=== PATIENT | male | born 1955 | race Caucasian/White ===

== ENCOUNTER 2018-08-24 13:40 | Emergency (ER) | payer MEDICAID, OTHER ==
[~2018-08-24] VITALS: Ht 167.6 cm; Wt 68.2 kg
[~2018-08-24 13:40] MED LIST: DIVA-78 PO; HYDR50CA10 PO; QUET200T PO; QUET25TA PO
[2018-08-24 13:52] VITALS: BP 149/84
== END 2018-08-24 14:38 | disposition left against medical advice (07) ==
LOC: EMS 13:40
DX: R45.851 Suicidal ideations (principal); J45.909 Unspecified asthma, uncomplicated; F32.9 Major depressive disorder, single episode, unspecified; F20.9 Schizophrenia, unspecified; F17.210 Nicotine dependence, cigarettes, uncomplicated; F12.90 Cannabis use, unspecified, uncomplicated; F19.90 Other psychoactive substance use, unspecified, uncomplicated; Z88.0 Allergy status to penicillin; Z88.6 Allergy status to analgesic agent; Z91.040 Latex allergy status

== ENCOUNTER 2018-09-22 16:38 | Inpatient (IN) | payer MEDICAID ==
[~2018-09-22] VITALS: Ht 167.6 cm; Wt 65.6 kg
[2018-09-22] MEDS ORDERED: LORazepam 2 MG TABLET PO PRN (19:45)
[2018-09-22] MEDS ORDERED: HALOPERIDOL 5 MG TABLET PO PRN (19:45)
[2018-09-22] MEDS ORDERED: ZOLPIDEM TARTRATE 10 MG TABLET PO PRN (19:45)
[2018-09-22] MEDS ORDERED: PNEUMOCOCCAL VACCINE POLYVALENT 0.5 ML VIAL [PPSV23] IM ONE (23:15)
[2018-09-22] MEDS: NICOTINE 14 MG/24 HOUR PATCH TD SCH (23:16)
[2018-09-23] VITALS (7 sets, daily range): BP systolic 146–195; BP diastolic 84–100
[2018-09-23] MEDS ORDERED: BACITRACIN 28.4 GM OINTMENT TP PRN (06:00)
[2018-09-23] MEDS ORDERED: MAGNESIUM HYDROXIDE SUSPENSION 30 ML UDCUP PO PRN (06:00)
[2018-09-23] MEDS ORDERED: ONDANSETRON HCL 4 MG TABLET PO PRN (06:00)
[2018-09-23] MEDS ORDERED: ALBUTEROL SULFATE HFA 90 MCG/PUFF 8 GM INHALER IH PRN (06:00)
[2018-09-23] MEDS ORDERED: LOPERAMIDE HCL 2 MG CAPSULE PO PRN (06:00)
[2018-09-23] MEDS ORDERED: BENZOCAINE/MENTHOL LOZENGE MM PRN (06:00)
[2018-09-23] MEDS ORDERED: ACETAMINOPHEN 325 MG TABLET PO PRN (06:00)
[2018-09-23] MEDS ORDERED: MAG HYDROX/AL HYDROX/SIMETH ES 30 ML SUSPENSION UDCUP PO PRN (06:00)
[2018-09-23] MEDS ORDERED: PETROLATUM,WHITE 28 GM JELLY TP PRN (06:00)
[2018-09-23] MEDS: DOCUSATE SODIUM 100 MG CAPSULE PO SCH ×2 (08:22→08:48)
[2018-09-23] MEDS: NICOTINE 14 MG/24 HOUR PATCH TD SCH ×2 (08:22→08:48)
[2018-09-23] MEDS: OMEPRAZOLE 20 MG CAPSULE PO SCH ×2 (08:22→08:49)
[2018-09-23 08:51] LABS: APPEARANCE,URINE CLEAR (CLEAR); BILIRUBIN,URINE NEGATIVE (NEGATIVE); GLUCOSE, URINE (UA) 250 mg/dL (NEGATIVE); KETONES,URINE NEGATIVE (NEGATIVE); LEUKOCYTE ESTERASE ,URINE NEGATIVE (NEGATIVE); NITRATE,URINE NEGATIVE (NEGATIVE); OCCULT BLOOD,URINE TRACE (NEGATIVE); PH,URINE 6.5 (5.0-8.0); PROTEIN,URINE SEE CONFIRM (NEGATIVE); UROBILINOGEN,URINE 0.2 mg/dL (<=1.0)
[2018-09-23 08:56] LABS: AMPHET/METH SCREEN,URINE NEGATIVE (NEGATIVE); BARBITURATE SCREEN, URINE NEGATIVE (NEGATIVE); BENZODIAZEPINES SCREEN,URINE NEGATIVE (NEGATIVE); CANNABINOID SCREEN,URINE NEGATIVE (NEGATIVE); COCAINE SCREEN,URINE NEGATIVE (NEGATIVE); METHADONE SCREEN, URINE NEGATIVE (NEGATIVE); OPIATE SCREEN,URINE NEGATIVE (NEGATIVE)
[2018-09-23 08:58] LABS: PHENCYCLIDINE SCREEN,URINE NEGATIVE (NEGATIVE)
[2018-09-23 09:06] LABS: SULFOSALICYLIC ACID,URINE 3+ (Negative)
[2018-09-23 09:11] LABS: BACTERIA,URINE None Seen /HPF (None Seen); RBC,URINE 0-2 /HPF (0-2); WBC,URINE None Seen /HPF (0-5)
[2018-09-23 09:12] LABS: COARSE GRANULAR CASTS,URINE 0-2 /LPF (None Seen); SQUAMOUS EPITHELIAL CELL,UR Rare /LPF (None Seen)
[2018-09-23] MEDS: HydrOXYzine PAMOATE 25 MG CAPSULE PO SCH ×2 (13:26→16:12)
[2018-09-23] MEDS: QUEtiapine FUMARATE 25 MG TABLET PO SCH ×2 (13:26→16:12)
[2018-09-23] MEDS: CloNIDine HCL 0.1 MG TABLET PO PRN ×2 (15:58→23:21)
[2018-09-23] MEDS ORDERED: DIVALPROEX SODIUM 500 MG ER TABLET PO SCH (17:00)
[2018-09-23] MEDS ORDERED: QUEtiapine FUMARATE 200 MG TABLET PO SCH (21:00)
[2018-09-23] MEDS ORDERED: LISINOPRIL 10 MG TABLET PO ONE (21:15)
[2018-09-24 04:59] VITALS: BP_SYST 192; BP_SYST 198; BP_DIAS 119; BP_DIAS 97
[2018-09-24] MEDS ORDERED: CloNIDine HCL 0.1 MG TABLET PO ONE (06:30)
[2018-09-24 06:59] VITALS: BP_SYST 202; BP_DIAS 107; BP_DIAS 110
[2018-09-24 08:24] VITALS: BP 174/93
[2018-09-24] MEDS ORDERED: AmLODIPine BESYLATE 5 MG TABLET PO SCH (09:00)
[2018-09-24] MEDS ORDERED: DIVALPROEX SODIUM 500 MG DR TABLET PO SCH (09:00)
[2018-09-24] MEDS: OMEPRAZOLE 20 MG CAPSULE PO SCH (09:00)
[2018-09-24] MEDS ORDERED: LISINOPRIL 20 MG TABLET PO SCH ×2 (09:00)
[2018-09-24] MEDS: NICOTINE 14 MG/24 HOUR PATCH TD SCH (09:00)
[2018-09-24] MEDS: HydrALAZINE HCL 25 MG TABLET PO SCH ×2 (09:00→13:00)
[2018-09-24] MEDS: DOCUSATE SODIUM 100 MG CAPSULE PO SCH (09:00)
[2018-09-24] MEDS: HydrOXYzine PAMOATE 25 MG CAPSULE PO SCH ×2 (09:01→13:00)
[2018-09-24] MEDS: QUEtiapine FUMARATE 25 MG TABLET PO SCH ×2 (09:01→13:00)
[2018-09-24 09:28] VITALS: BP 197/113
[2018-09-24 09:31] VITALS: BP 205/121
[2018-09-24] MEDS ORDERED: PIME30CR6 TP (21:38)
== END 2018-09-24 21:42 | disposition still patient (30) | DRG 750 ==
LOC: B2S 19:40
PROVIDERS: ADMIT Psychiatry & Neurology Psychiatry; ATTEND Psychiatry & Neurology Psychiatry
DX: F25.9 Schizoaffective disorder, unspecified (principal); E46 Unspecified protein-calorie malnutrition; R45.851 Suicidal ideations; F31.9 Bipolar disorder, unspecified; F12.90 Cannabis use, unspecified, uncomplicated; F17.200 Nicotine dependence, unspecified, uncomplicated; I10 Essential (primary) hypertension; I16.9 Hypertensive crisis, unspecified; J44.9 Chronic obstructive pulmonary disease, unspecified; Z71.51 Drug abuse counseling and surveillance of drug abuser; Z71.6 Tobacco abuse counseling; Z91.040 Latex allergy status; Z91.09 Other allergy status, other than to drugs and biological substances; Z88.0 Allergy status to penicillin; Z88.6 Allergy status to analgesic agent
CPT/HCPCS: 80307

== ENCOUNTER 2019-07-07 14:21 | Inpatient (IN) | payer OTHER ==
[~2019-07-07] VITALS: Ht 167.6 cm; Wt 63.0 kg
[~2019-07-07 14:21] MED LIST changes: -HYDR50CA10 PO; +HYDR50CA9 PO; +PIME30CR6 TP
[2019-07-07] MEDS ORDERED: CLON0.1T83 PO (14:53)
[2019-07-07] MEDS ORDERED: CLOPIDOGREL BISULFATE 75 MG TABLET PO ONE (15:15)
[2019-07-07] MEDS ORDERED: NITROGLYCERIN 2% (1 GM=INCH) PACKET TP ONE (15:15)
[2019-07-07] MEDS ORDERED: HydrALAZINE HCL 20 MG/ML VIAL IVP ONE (15:15)
[2019-07-07 15:57] LABS: BASOPHILS % (AUTO) 0.5 % (0.0-2.0); EOSINOPHILS % (AUTO) 0.5 % (1.0-6.0); HEMOGLOBIN 7.5 g/dL (13.5-17.5); LYMPHOCYTES # (AUTO) 0.7 K/uL (1.0-4.8); MEAN CORPUSCULAR HEMOGLOBIN 29.7 pg (26.0-34.0); MEAN CORPUSCULAR HGB CONC 32.7 G/dL (31.0-37.0); MEAN CORPUSCULAR VOLUME 91 fL (80-100); MONOCYTES # (AUTO) 0.7 K/uL (0.1-1.0); NEUTROPHILS # (AUTO) 9.6 K/uL (1.8-7.7); PLATELET COUNT (AUTO) 278 K/uL (150-450); RED BLOOD CELL COUNT(AUTO) 2.53 MIL/uL (4.50-5.90)
[2019-07-07 16:03] LABS: CREATININE 10.35 mg/dL (0.60-1.30)
[2019-07-07 16:09] LABS: ALBUMIN 2.8 g/dL (3.4-5.0); BILIRUBIN,TOTAL 0.3 mg/dL (0.1-1.0); TOTAL PROTEIN, SERUM 6.3 g/dL (6.4-8.2)
[2019-07-07 16:12] LABS: APPEARANCE,URINE CLEAR (CLEAR); BILIRUBIN,URINE NEGATIVE (NEGATIVE); GLUCOSE, URINE (UA) 250 mg/dL (NEGATIVE); KETONES,URINE NEGATIVE (NEGATIVE); LEUKOCYTE ESTERASE ,URINE NEGATIVE (NEGATIVE); NITRATE,URINE NEGATIVE (NEGATIVE); OCCULT BLOOD,URINE MODERATE (NEGATIVE); PROTEIN,URINE SEE CONFIRM (NEGATIVE); UROBILINOGEN,URINE 0.2 mg/dL (<=1.0)
[2019-07-07 16:35] LABS: BACTERIA,URINE Few /HPF (None Seen); SQUAMOUS EPITHELIAL CELL,UR Few /LPF (None Seen); SULFOSALICYLIC ACID,URINE 3+ (Negative); WBC,URINE 0-2 /HPF (0-5)
[2019-07-07 16:59] LABS: PLATELET MORPHOLOGY COMMENT NORMAL
[2019-07-07] MEDS ORDERED: ONDANSETRON HCL 4 MG/2 ML VIAL IVP ONE (17:00)
[2019-07-07] MEDS ORDERED: ACETAMINOPHEN 325 MG TABLET PO PRN ×2 (17:15→20:45)
[2019-07-07] MEDS ORDERED: ONDANSETRON HCL 4 MG/2 ML VIAL IVP PRN ×2 (17:15→20:45)
[2019-07-07] MEDS ORDERED: BUMETANIDE 0.25 MG/ML 4 ML VIAL IVP SCH (18:00)
[2019-07-07] MEDS: VITAMIN B COMP/VIT C/FOLIC ACID CAPSULE PO SCH (19:01)
[2019-07-07] MEDS: AmLODIPine BESYLATE 5 MG TABLET PO SCH (19:38)
[2019-07-07] MEDS ORDERED: HYDROCODONE/ACETAMINOPHEN 5-325 MG TABLET PO PRN (20:45)
[2019-07-07] MEDS ORDERED: BISACODYL 10 MG RECTAL RECTAL SUPPOSITORY PR PRN (20:45)
[2019-07-07] MEDS ORDERED: ZOLPIDEM TARTRATE 5 MG TABLET PO PRN (20:45)
[2019-07-07] MEDS ORDERED: MORPHINE SULFATE 2 MG/ML SYRINGE IVP PRN (20:45)
[2019-07-07] MEDS ORDERED: MAGNESIUM HYDROXIDE SUSPENSION 30 ML UDCUP PO PRN (20:45)
[2019-07-07 21:00] VITALS: BP 148/82
[2019-07-07] MEDS ORDERED: QUEtiapine FUMARATE 200 MG TABLET PO SCH (21:00)
[2019-07-07] MEDS: DIVALPROEX SODIUM 500 MG DR TABLET PO SCH (21:00)
[2019-07-07] MEDS: DOCUSATE SODIUM 100 MG CAPSULE PO SCH (21:00)
[2019-07-07] MEDS: HydrALAZINE HCL 25 MG TABLET PO SCH (21:53)
[2019-07-07] MEDS: HydrOXYzine PAMOATE 50 MG CAPSULE PO SCH (21:53)
[2019-07-08] VITALS (10 sets, daily range): BP systolic 131–166; BP diastolic 71–82
[2019-07-08] MEDS: BUMETANIDE 0.25 MG/ML 10 ML VIAL IV SCH ×2 (00:18→09:09)
[2019-07-08 07:45] LABS: BASOPHILS % (AUTO) 0.4 % (0.0-2.0); EOSINOPHILS % (AUTO) 2.4 % (1.0-6.0); LYMPHOCYTES # (AUTO) 1.6 K/uL (1.0-4.8); LYMPHOCYTES % (AUTO) 25.5 % (22.0-44.0); MEAN CORPUSCULAR HGB CONC 33.4 G/dL (31.0-37.0); MEAN CORPUSCULAR VOLUME 90 fL (80-100); MONOCYTES # (AUTO) 0.7 K/uL (0.1-1.0); MONOCYTES % (AUTO) 11.5 % (2.0-9.0); NEUTROPHILS # (AUTO) 3.7 K/uL (1.8-7.7); NEUTROPHILS % (AUTO) 60.2 % (40.0-70.0); PLATELET COUNT (AUTO) 230 K/uL (150-450); RED BLOOD CELL COUNT(AUTO) 2.26 MIL/uL (4.50-5.90); RED CELL DISTRIBUTION WIDTH 15.9 % (11.5-14.5)
[2019-07-08] MEDS: HEPARIN SODIUM,PORCINE 5,000 UNITS/ML VIAL SQ SCH ×2 (08:00)
[2019-07-08 08:02] LABS: HEMOGLOBIN 6.8 g/dL (13.5-17.5)
[2019-07-08 08:03] LABS: HEMATOCRIT 20.3 % (41-53); POTASSIUM 3.6 mmol/L (3.5-5.1)
[2019-07-08 08:04] LABS: CALCIUM, TOTAL 6.7 mg/dL (8.8-10.5); MAGNESIUM 2.2 mg/dL (1.80-2.40); PHOSPHORUS 7.5 mg/dL (2.5-4.9)
[2019-07-08] MEDS: DIVALPROEX SODIUM 500 MG DR TABLET PO SCH (09:00)
[2019-07-08] MEDS ORDERED: PANTOPRAZOLE SODIUM 40 MG DR TABLET PO SCH (09:00)
[2019-07-08] MEDS: DOCUSATE SODIUM 100 MG CAPSULE PO SCH (09:00)
[2019-07-08] MEDS: VITAMIN B COMP/VIT C/FOLIC ACID CAPSULE PO SCH (09:09)
[2019-07-08] MEDS: AmLODIPine BESYLATE 5 MG TABLET PO SCH (09:09)
[2019-07-08] MEDS: HydrALAZINE HCL 25 MG TABLET PO SCH (09:09)
[2019-07-08] MEDS: HydrOXYzine PAMOATE 50 MG CAPSULE PO SCH (09:09)
[2019-07-08 09:12] LABS: PROTHROMBIN TIME 10.6 SEC (9.4-11.6)
[2019-07-08] MEDS ORDERED: SODIUM CHLORIDE 0.9% 500 ML IV ONE (09:31)
[2019-07-08] MEDS ORDERED: HEPARIN SODIUM,PORCINE 1,000 UNITS/ML 10 ML VIAL ONE (10:00)
[2019-07-08] MEDS ORDERED: LIDOCAINE/PF 1% 30 ML VIAL ONE (10:00)
[2019-07-08] MEDS ORDERED: HEPARIN SODIUM 1000 UNITS/NS 0 ML ONE (10:00)
[2019-07-08] MEDS: LABETALOL HCL 5 MG/ML 20 ML VIAL IVP PRN ×2 (10:37→12:30)
[2019-07-08] MEDS ORDERED: FLUMAZENIL 0.1 MG/ML 5 ML VIAL IVP ONE (13:12)
[2019-07-08] MEDS ORDERED: NALOXONE HCL 0.4 MG/ML VIAL ONE (13:12)
[2019-07-08] MEDS ORDERED: FentaNYL CITRATE-PF 100 MCG/2 ML VIAL ONE (13:12)
[2019-07-08] MEDS ORDERED: MIDAZOLAM HCL 2 MG/2 ML VIAL ONE (13:12)
[2019-07-08] MEDS ORDERED: HEPARIN SODIUM,PORCINE 5,000 UNITS/ML VIAL SQ SCH (21:00)
== END 2019-07-08 13:20 | disposition left against medical advice (07) | DRG 199 ==
LOC: EMS 14:24 → 5S 18:33
PROVIDERS: ADMIT Internal Medicine; ATTEND Internal Medicine
DX: I16.0 Hypertensive urgency (principal); E43 Unspecified severe protein-calorie malnutrition; E87.2 Acidosis; N18.6 End stage renal disease; Z99.2 Dependence on renal dialysis; F20.9 Schizophrenia, unspecified; E83.51 Hypocalcemia; D63.8 Anemia in other chronic diseases classified elsewhere; M19.90 Unspecified osteoarthritis, unspecified site; Z91.19 Patient's noncompliance with other medical treatment and regimen; I10 Essential (primary) hypertension
CPT/HCPCS: 83735; 83970; 84100; 86850; 86900; 86901; 86920; 87340; 93005; 93971; 99291; J0360; J1644; J2250; J2310; J2405; J3010; J3490; J7040; P9016

== ENCOUNTER 2019-09-18 12:00 | Inpatient (IN) | payer OTHER ==
[~2019-09-18] VITALS: Ht 167.6 cm; Wt 58.0 kg
[~2019-09-18 12:00] MED LIST changes: +CLON0.1T83 PO; +HEPARIN SODIUM,PORCINE 1,000 UNITS/ML VIAL IVP ONE; -PIME30CR6 TP
[2019-09-18] MEDS ORDERED: OLAN2.5T3 PO (12:18)
[2019-09-18 12:54] LABS: HEMOGLOBIN 7.2 g/dL (13.5-17.5); LYMPHOCYTES # (AUTO) 1.2 K/uL (1.0-4.8); LYMPHOCYTES % (AUTO) 20.3 % (22.0-44.0); MEAN CORPUSCULAR HEMOGLOBIN 29.5 pg (26.0-34.0); MEAN CORPUSCULAR HGB CONC 32.8 G/dL (31.0-37.0); MEAN CORPUSCULAR VOLUME 90 fL (80-100); MONOCYTES # (AUTO) 0.5 K/uL (0.1-1.0); MONOCYTES % (AUTO) 8.6 % (2.0-9.0); NEUTROPHILS # (AUTO) 4.1 K/uL (1.8-7.7); NEUTROPHILS % (AUTO) 69.1 % (40.0-70.0); PLATELET COUNT (AUTO) 219 K/uL (150-450); RED BLOOD CELL COUNT(AUTO) 2.45 MIL/uL (4.50-5.90); RED CELL DISTRIBUTION WIDTH 14.9 % (11.5-14.5)
[2019-09-18 13:16] LABS: LACTIC ACID 1.1 mmol/L (0.4-2.0)
[2019-09-18 13:17] LABS: B-TYPE NATRIURETIC PEPTIDE 1350 pg/mL (0-100)
[2019-09-18 13:39] LABS: CHLORIDE 105 mmol/L (98-107); POTASSIUM 3.7 mmol/L (3.5-5.1); SODIUM SERUM 137 mmol/L (136-145)
[2019-09-18 13:40] LABS: ALANINE AMINOTRANSFERASE 37 U/L (12-78); ALBUMIN 3.1 g/dL (3.4-5.0); ALKALINE PHOSPHATASE 91 U/L (46-116); ANION GAP 20 mmol/L (8-16); ASPARTATE AMINOTRANSFERASE 19 U/L (15-37); BILIRUBIN,TOTAL 0.3 mg/dL (0.1-1.0); CARBON DIOXIDE 12 mmol/L (22-29); CREATINE KINASE, TOTAL ONLY 495 U/L (39-308); CREATININE 11.65 mg/dL (0.60-1.30); GLOMERULAR FILTR. RATE CALC 4 mL/min (>60); GLUCOSE,RANDOM 135 mg/dL (70-110); LIPASE 369 U/L (73-393); TOTAL PROTEIN, SERUM 6.3 g/dL (6.4-8.2)
[2019-09-18 13:41] LABS: UREA NITROGEN, BLOOD 120 mg/dL (7-18)
[2019-09-18 14:09] LABS: CALCIUM, TOTAL 6.3 mg/dL (8.8-10.5)
[2019-09-18] MEDS ORDERED: CloNIDine HCL 0.1 MG TABLET PO PRN (14:30)
[2019-09-18] MEDS ORDERED: ACETAMINOPHEN 325 MG TABLET PO PRN (14:30)
[2019-09-18] MEDS ORDERED: MORPHINE SULFATE 4 MG/ML SYRINGE IVP ONE (14:45)
[2019-09-18] MEDS: AmLODIPine BESYLATE 10 MG TABLET PO SCH (15:52)
[2019-09-18] MEDS ORDERED: LORazepam 2 MG/ML VIAL IVP ONE (16:15)
[2019-09-18] MEDS ORDERED: MORPHINE SULFATE 2 MG/ML SYRINGE IVP ONE (16:15)
[2019-09-18 16:16] LABS: APPEARANCE,URINE CLEAR (CLEAR); BILIRUBIN,URINE NEGATIVE (NEGATIVE); GLUCOSE, URINE (UA) 100 mg/dL (NEGATIVE); KETONES,URINE NEGATIVE (NEGATIVE); LEUKOCYTE ESTERASE ,URINE NEGATIVE (NEGATIVE); NITRATE,URINE NEGATIVE (NEGATIVE); OCCULT BLOOD,URINE SMALL (NEGATIVE); PROTEIN,URINE SEE CONFIRM (NEGATIVE); UROBILINOGEN,URINE 0.2 mg/dL (<=1.0)
[2019-09-18] MEDS: ONDANSETRON HCL 4 MG/2 ML VIAL IVP PRN ×2 (16:16→22:02)
[2019-09-18 16:21] LABS: AMPHET/METH SCREEN,URINE NEGATIVE (NEGATIVE); BARBITURATE SCREEN, URINE NEGATIVE (NEGATIVE); BENZODIAZEPINES SCREEN,URINE NEGATIVE (NEGATIVE); CANNABINOID SCREEN,URINE NEGATIVE (NEGATIVE); COCAINE SCREEN,URINE NEGATIVE (NEGATIVE); METHADONE SCREEN, URINE NEGATIVE (NEGATIVE); OPIATE SCREEN,URINE NEGATIVE (NEGATIVE)
[2019-09-18 16:25] LABS: PHENCYCLIDINE SCREEN,URINE NEGATIVE (NEGATIVE)
[2019-09-18 16:50] LABS: SULFOSALICYLIC ACID,URINE 4+ (Negative)
[2019-09-18 16:52] LABS: BACTERIA,URINE None Seen /HPF (None Seen); RBC,URINE 0-2 /HPF (0-2); SQUAMOUS EPITHELIAL CELL,UR Rare /LPF (None Seen); WBC,URINE None Seen /HPF (0-5)
[2019-09-18] MEDS: DOCUSATE SODIUM 100 MG CAPSULE PO SCH (20:27)
[2019-09-18] MEDS ORDERED: SODIUM CHLORIDE 0.9% 1,000 ML ONE (21:20)
[2019-09-18 21:47] VITALS: BP 158/95
[2019-09-19] VITALS (7 sets, daily range): BP systolic 146–185; BP diastolic 75–103
[2019-09-19] MEDS: AmLODIPine BESYLATE 10 MG TABLET PO SCH (07:58)
[2019-09-19] MEDS: DOCUSATE SODIUM 100 MG CAPSULE PO SCH ×2 (07:58→21:00)
[2019-09-19] MEDS: VITAMIN B COMP/VIT C/FOLIC ACID CAPSULE PO SCH (07:58)
[2019-09-19] MEDS: FAMOTIDINE 20 MG TABLET PO SCH (07:58)
[2019-09-19] MEDS: ONDANSETRON HCL 4 MG/2 ML VIAL IVP PRN (08:05)
[2019-09-19] MEDS ORDERED: SODIUM CHLORIDE 0.9% 2,000 ML ONE (10:12)
[2019-09-19 10:40] LABS: BASOPHILS % (AUTO) 0.7 % (0.0-2.0); EOSINOPHILS % (AUTO) 1.5 % (1.0-6.0); LYMPHOCYTES # (AUTO) 0.9 K/uL (1.0-4.8); LYMPHOCYTES % (AUTO) 11.7 % (22.0-44.0); MEAN CORPUSCULAR HEMOGLOBIN 29.4 pg (26.0-34.0); MEAN CORPUSCULAR HGB CONC 33.3 G/dL (31.0-37.0); MEAN CORPUSCULAR VOLUME 89 fL (80-100); MONOCYTES # (AUTO) 0.5 K/uL (0.1-1.0); MONOCYTES % (AUTO) 7.1 % (2.0-9.0); NEUTROPHILS # (AUTO) 5.9 K/uL (1.8-7.7); PLATELET COUNT (AUTO) 219 K/uL (150-450); RED BLOOD CELL COUNT(AUTO) 2.38 MIL/uL (4.50-5.90); RED CELL DISTRIBUTION WIDTH 14.4 % (11.5-14.5)
[2019-09-19 11:02] LABS: ALBUMIN 2.6 g/dL (3.4-5.0); BILIRUBIN,TOTAL 0.4 mg/dL (0.1-1.0); CALCIUM, TOTAL 6.5 mg/dL (8.8-10.5); CREATININE 7.36 mg/dL (0.60-1.30)
[2019-09-19] MEDS ORDERED: EPOETIN ALFA 10,000 UNITS/ML VIAL SQ SCH (11:15)
[2019-09-19 11:27] LABS: TOTAL PROTEIN, SERUM 5.3 g/dL (6.4-8.2)
[2019-09-19 11:30] LABS: POTASSIUM 2.8 mmol/L (3.5-5.1)
[2019-09-19] MEDS: HYDROCODONE/ACETAMINOPHEN 5-325 MG TABLET PO PRN ×2 (12:15→21:01)
[2019-09-20 04:45] VITALS: BP 161/89
[2019-09-20 07:35] VITALS: BP 160/90
[2019-09-20] MEDS: DOCUSATE SODIUM 100 MG CAPSULE PO SCH ×2 (08:06→21:00)
[2019-09-20] MEDS: FAMOTIDINE 20 MG TABLET PO SCH (08:14)
[2019-09-20] MEDS: VITAMIN B COMP/VIT C/FOLIC ACID CAPSULE PO SCH (08:14)
[2019-09-20] MEDS: AmLODIPine BESYLATE 10 MG TABLET PO SCH (08:14)
[2019-09-20 11:22] VITALS: BP 155/87
[2019-09-20] MEDS ORDERED: CALCIUM GLUCONATE 1,000 MG in DEXTROSE 5%-WATER 50 ML IV ONE (14:30)
[2019-09-20] MEDS ORDERED: FERROUS SULFATE 325 MG EC TABLET PO SCH (18:00)
[2019-09-20] MEDS ORDERED: HEPARIN SODIUM,PORCINE 1,000 UNITS/ML VIAL IVP ONE (18:17)
[2019-09-20 19:45] VITALS: BP 155/86
[2019-09-21 05:31] VITALS: BP 157/76
[2019-09-21 07:39] VITALS: BP 191/95
[2019-09-21] MEDS ORDERED: CALCITRIOL 0.25 MCG CAPSULE PO SCH (09:00)
== END 2019-09-21 08:35 | disposition left against medical advice (07) | DRG 469 ==
LOC: EMS 12:05 → 5N 19:30 → 6N 20:42 → 5S 09-19 06:05 → 6N 09-19 18:50
PROVIDERS: ADMIT Internal Medicine; ATTEND Internal Medicine
PROC: 06HY33Z Insertion of Infusion Device into Lower Vein, Percutaneous Approach (ICD-10-PCS; principal; 2019-09-18)
PROC: B54BZZA Ultrasonography of Right Lower Extremity Veins, Guidance (ICD-10-PCS; 2019-09-18)
PROC: 5A1D70Z Performance of Urinary Filtration, Intermittent, Less than 6 Hours Per Day (ICD-10-PCS; 2019-09-18)
PROC: 5A1D70Z Performance of Urinary Filtration, Intermittent, Less than 6 Hours Per Day (ICD-10-PCS; 2019-09-19)
DX: N17.9 Acute kidney failure, unspecified (principal); E11.22 Type 2 diabetes mellitus with diabetic chronic kidney disease; E44.0 Moderate protein-calorie malnutrition; E83.51 Hypocalcemia; E87.2 Acidosis; I12.0 Hypertensive chronic kidney disease with stage 5 chronic kidney disease or end stage renal disease; I16.0 Hypertensive urgency; N18.6 End stage renal disease; D63.8 Anemia in other chronic diseases classified elsewhere; E88.09 Other disorders of plasma-protein metabolism, not elsewhere classified; E87.6 Hypokalemia; R80.9 Proteinuria, unspecified; Z53.29 Procedure and treatment not carried out because of patient's decision for other reasons; K76.9 Liver disease, unspecified; F12.90 Cannabis use, unspecified, uncomplicated; G47.00 Insomnia, unspecified; F20.9 Schizophrenia, unspecified; Z99.2 Dependence on renal dialysis; Z88.0 Allergy status to penicillin; Z91.040 Latex allergy status; F17.210 Nicotine dependence, cigarettes, uncomplicated; M54.9 Dorsalgia, unspecified; M19.90 Unspecified osteoarthritis, unspecified site; Z91.19 Patient's noncompliance with other medical treatment and regimen; J44.9 Chronic obstructive pulmonary disease, unspecified; I25.10 Atherosclerotic heart disease of native coronary artery without angina pectoris; Z86.73 Personal history of transient ischemic attack (TIA), and cerebral infarction without residual deficits
CPT/HCPCS: 72131; 74176; 83605; 87340; 93005; G0480; J0610; J0885; J1644; J2060; J2270; J2405; J7030; J7060

== ENCOUNTER 2019-12-12 11:48 | Inpatient (IN) | payer OTHER ==
[~2019-12-12] VITALS: Ht 167.6 cm; Wt 63.8 kg
[~2019-12-12 11:48] MED LIST changes: -CLON0.1T83 PO; -DIVA-78 PO; -HEPARIN SODIUM,PORCINE 1,000 UNITS/ML VIAL IVP ONE; -HYDR50CA9 PO; +OLAN2.5T3 PO
[2019-12-12] MEDS ORDERED: NITROGLYCERIN 50 MG/D5% WATER 250 ML IV PRN (12:15)
[2019-12-12] MEDS ORDERED: NITROGLYCERIN 0.4 MG SUBLINGUAL TABLET #25 SL ONE (12:15)
[2019-12-12 12:25] LABS: BASOPHILS % (AUTO) 0.9 % (0.0-2.0); EOSINOPHILS % (AUTO) 0.5 % (1.0-6.0); HEMOGLOBIN 11.2 g/dL (13.5-17.5); LYMPHOCYTES # (AUTO) 1.2 K/uL (1.0-4.8); LYMPHOCYTES % (AUTO) 8.9 % (22.0-44.0); MEAN CORPUSCULAR HEMOGLOBIN 31.7 pg (26.0-34.0); MEAN CORPUSCULAR HGB CONC 32.9 G/dL (31.0-37.0); MEAN CORPUSCULAR VOLUME 96 fL (80-100); MONOCYTES # (AUTO) 0.9 K/uL (0.1-1.0); MONOCYTES % (AUTO) 6.4 % (2.0-9.0); NEUTROPHILS % (AUTO) 83.3 % (40.0-70.0); PLATELET COUNT (AUTO) 364 K/uL (150-450); RED BLOOD CELL COUNT(AUTO) 3.53 MIL/uL (4.50-5.90); RED CELL DISTRIBUTION WIDTH 17.3 % (11.5-14.5)
[2019-12-12 12:34] LABS: CALCIUM, TOTAL 8.9 mg/dL (8.8-10.5); CREATININE 11.69 mg/dL (0.60-1.30); POTASSIUM 3.7 mmol/L (3.5-5.1)
[2019-12-12 12:41] LABS: PROTHROMBIN TIME 10.3 SEC (9.4-11.6)
[2019-12-12 12:59] LABS: ALBUMIN 3.1 g/dL (3.4-5.0); BILIRUBIN,TOTAL 0.5 mg/dL (0.1-1.0); TOTAL PROTEIN, SERUM 6.5 g/dL (6.4-8.2)
[2019-12-12] MEDS ORDERED: ACETAMINOPHEN 325 MG TABLET PO PRN ×2 (13:30→13:45)
[2019-12-12] MEDS ORDERED: ONDANSETRON HCL 4 MG/2 ML VIAL IVP PRN (13:30)
[2019-12-12] MEDS ORDERED: OxyCODONE HCL/ACETAMINOPHEN 5-325 MG TABLET PO PRN (13:45)
[2019-12-12] MEDS ORDERED: CloNIDine HCL 0.1 MG TABLET PO PRN ×2 (13:45→23:45)
[2019-12-12] MEDS: AmLODIPine BESYLATE 5 MG TABLET PO SCH (13:47)
[2019-12-12] MEDS ORDERED: CloNIDine HCL 0.1 MG TABLET ONE (15:26)
[2019-12-12 16:00] VITALS: BP 169/80
[2019-12-12] MEDS ORDERED: SODIUM CHLORIDE 0.9% 2,000 ML ONE (18:50)
[2019-12-12 20:00] VITALS: BP 171/91
[2019-12-12] MEDS: DOCUSATE SODIUM 100 MG CAPSULE PO SCH (21:00)
[2019-12-12] MEDS: HEPARIN SODIUM,PORCINE 5,000 UNITS/ML VIAL SQ SCH (22:54)
[2019-12-13] VITALS: BP 166/79
[2019-12-13 00:42] VITALS: BP 156/77
[2019-12-13] MEDS ORDERED: CloNIDine HCL 0.1 MG TABLET PO PRN (01:45)
[2019-12-13 05:32] VITALS: BP 152/84
[2019-12-13 07:29] VITALS: BP 160/87
[2019-12-13] MEDS: HEPARIN SODIUM,PORCINE 5,000 UNITS/ML VIAL SQ SCH ×2 (08:17→08:28)
[2019-12-13] MEDS: DOCUSATE SODIUM 100 MG CAPSULE PO SCH ×2 (08:17→08:28)
[2019-12-13] MEDS ORDERED: SODIUM CHLORIDE 0.9% 2,000 ML ONE (08:24)
[2019-12-13 10:08] LABS: BASOPHILS % (AUTO) 1.1 % (0.0-2.0); EOSINOPHILS % (AUTO) 1.3 % (1.0-6.0); HEMATOCRIT 27.8 % (41-53); HEMOGLOBIN 9.2 g/dL (13.5-17.5); LYMPHOCYTES # (AUTO) 1.4 K/uL (1.0-4.8); LYMPHOCYTES % (AUTO) 18.6 % (22.0-44.0); MEAN CORPUSCULAR HEMOGLOBIN 31.6 pg (26.0-34.0); MEAN CORPUSCULAR HGB CONC 33.1 G/dL (31.0-37.0); MEAN CORPUSCULAR VOLUME 96 fL (80-100); MONOCYTES # (AUTO) 0.7 K/uL (0.1-1.0); MONOCYTES % (AUTO) 9.2 % (2.0-9.0); NEUTROPHILS # (AUTO) 5.2 K/uL (1.8-7.7); NEUTROPHILS % (AUTO) 69.8 % (40.0-70.0); PLATELET COUNT (AUTO) 228 K/uL (150-450); RED BLOOD CELL COUNT(AUTO) 2.91 MIL/uL (4.50-5.90); RED CELL DISTRIBUTION WIDTH 17.1 % (11.5-14.5)
[2019-12-13 10:10] LABS: CALCIUM, TOTAL 7.8 mg/dL (8.8-10.5); CREATININE 6.08 mg/dL (0.60-1.30); POTASSIUM 3.3 mmol/L (3.5-5.1)
[2019-12-13] MEDS: AmLODIPine BESYLATE 5 MG TABLET PO SCH (12:20)
[2019-12-13] MEDS ORDERED: LIDOCAINE/PF 1% 2 ML VIAL ONE (23:21)
[2019-12-13] MEDS ORDERED: HEPARIN SODIUM,PORCINE 1,000 UNITS/ML VIAL ONE (23:21)
[2019-12-14] MEDS ORDERED: EPOETIN ALFA 10,000 UNITS/ML 2 ML VIAL SQ SCH (09:00)
== END 2019-12-13 13:45 | disposition left against medical advice (07) | DRG 199 ==
LOC: EMS 11:48 → ICU 14:41 → 5S 14:50
PROVIDERS: ADMIT Internal Medicine; ATTEND Internal Medicine
PROC: 5A1D70Z Performance of Urinary Filtration, Intermittent, Less than 6 Hours Per Day (ICD-10-PCS; principal; 2019-12-13)
DX: I16.0 Hypertensive urgency (principal); D63.8 Anemia in other chronic diseases classified elsewhere; F25.9 Schizoaffective disorder, unspecified; Z53.20 Procedure and treatment not carried out because of patient's decision for unspecified reasons; F40.240 Claustrophobia; I13.2 Hypertensive heart and chronic kidney disease with heart failure and with stage 5 chronic kidney disease, or end stage renal disease; I25.10 Atherosclerotic heart disease of native coronary artery without angina pectoris; M19.90 Unspecified osteoarthritis, unspecified site; F32.9 Major depressive disorder, single episode, unspecified; E55.9 Vitamin D deficiency, unspecified; I50.20 Unspecified systolic (congestive) heart failure; N18.6 End stage renal disease; Z86.73 Personal history of transient ischemic attack (TIA), and cerebral infarction without residual deficits; Z87.891 Personal history of nicotine dependence; Z91.19 Patient's noncompliance with other medical treatment and regimen; Z99.2 Dependence on renal dialysis; Z91.040 Latex allergy status; Z88.0 Allergy status to penicillin; Z88.6 Allergy status to analgesic agent; Z79.899 Other long term (current) drug therapy
CPT/HCPCS: 82105; 87081; 87340; 93005; 93306; 99291; G0378; J1644; J3490; J7030; 36415-L1; 36415-TC; 71045-TC